=== PATIENT | female | born 1970 | race Caucasian/White ===

== ENCOUNTER 2017-02-17 12:08 | Emergency (ER) | payer OTHER ==
[~2017-02-17] VITALS: Ht 162.6 cm; Wt 63.5 kg
[~2017-02-17 12:08] MED LIST: BACTROBAN15 GM TOP; CLINDAMYCIN HC300 M1 PO
--- NOTE | 2017-02-17 13:15 | RADIOLOGY REPORT ---
EXAMINATION: XR RIBS, RIGHT CLINICAL INFORMATION: Status post being struck with softball. Right rib pain. COMPARISON: None TECHNIQUE: PA view of the chest and 3 dedicated views of the right ribs are acquired. FINDINGS: Lungs are clear. No consolidation, pneumothorax, or pleural effusion. The cardiomediastinal silhouette and pulmonary vasculature are normal. Osseous structures are unremarkable. Ribs are intact. No fractures are identified. IMPRESSION: Unremarkable examination.
--- NOTE | 2017-02-17 13:26 | ED GENERAL ADULT ---
History of Present Illness General Chief Complaint: Trunk Injury Stated Complaint: R SIDED RIB PAIN S/P HIT WITH SOFTBALL Source: patient Exam Limitations: no limitations Vital Signs & Intake/Output Vital Signs & Intake/Output Vital Signs Date Time Temp Pulse Resp B/P Pulse O2 O2 Flow FiO2 Ox Delivery Rate 02/17 1216 96.8 103 16 98 Room Air Allergies Coded Allergies: NO KNOWN ALLERGIES (UNKNOWN 02/17/17) Reconcile Medications Levothyroxine Sodium 88 MCG TABLET 1 TAB PO DAILY AC THYROID (Reported) Meloxicam (Mobic) 15 MG TABLET 1 TAB PO DAILY PRN PAIN Metoprolol Succinate 50 MG TAB.ER.24H 1 TAB PO DAILY HEART (Reported) Oxycodone HCl/Acetaminophen (Percocet 5-325 MG Tablet) 5 MG-325 MG TABLET 1 TAB PO BID PRN PAIN Triage Note: 46 S/P BEING STRUCK WITH SOFTBALL YESTERDAY. STATES PAIN IS ONLY WHERE SHE WAS STRUCK. DENIES NOTING BRUISE. XRAY ORDERED. Triage Nurses Notes Reviewed? 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 Patient denies any shoulder pain however does state that moving her shoulder makes her rib pain worse. Denies any shortness of breath hemoptysis cough. Patient hasn't taken medications for her symptoms. (CLEOPATRA MCNALLY) Past History Travel History Traveled to [place] past 21 day No Medical History Any Pertinent Medical History? 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 Psychosocial History What is your primary language Welsh Tobacco Use: Quit >30 days ago Family History Hx Contributory? No (CLEOPATRA MCNALLY) Review of Systems Review of Systems Constitutional: Reports: no symptoms. EENTM: Reports: no symptoms. Respiratory: Reports: see HPI. Denies: cough, short of breath, sputum production. Cardiovascular: Reports: see HPI. GI: Reports: no symptoms. Genitourinary: Reports: no symptoms. Musculoskeletal: Reports: no symptoms. Skin: Reports: no symptoms. Neurological/Psychological: Reports: no symptoms. Hematologic/Endocrine: Reports: no symptoms. Immunologic/Allergic: Reports: no symptoms. All Other Systems: Reviewed and Negative (CLEOPATRA MCNALLY) Physical Exam Physical Exam General Appearance: no apparent distress, alert, comfortable Comments: Well-developed well-nourished person in no acute distress HEENT: Normal EENT exam, Neck: Supple, no lymphadenopathy, normal range of motion without pain or tenderness Back: Nontender, no CVA tenderness. Cardiovascular: Regular rate and rhythms no murmurs rubs or gallops, normal JVP Respiratory: No respiratory distress.breath sounds clear to auscultation bilaterally Abdomen: Soft, nontender nondistended, no appreciable organomegaly. Normal bowel sounds. No ascites Extremity: No edema, no calf tenderness to palpation, normal and equal pulses. Neuro: Alert oriented x3, motor sensory normal, Skin: No appreciable rash on exposed skin, skin is warm and dry. Psych: Mood and affect is normal, memory and judgment is normal. Core Measures ACS in differential dx? No CVA/TIA Diagnosis: No Severe Sepsis Present: No Septic Shock Present: No Diagram Body: 1) Right upper axilla point tenderness noted, no signs of trauma no swelling no ecchymosis no step-off deformity (CLEOPATRA MCNALLY) Progress Differential Diagnoses I considered the following diagnoses in my evaluation of the patient: [Rib contusion, rib fracture, pneumothorax, hemothorax,] Plan of Care: Orders Procedure Date/time Status XRY-SHOULDER COMPLETE-RIGHT 02/17 1356 Active Current Medications Sig/Marv Start time Last Medication Dose Stop Time Status Admin Ibuprofen 600 MG ONCE ONE 02/17 1415 UNVr (Motrin) 02/17 1416 Patient looks well no apparent distress nontoxic-appearing clear lungs auscultation no respiratory distress. X-rays showed no osseous injury for concerns of rib fracture. (CLEOPATRA MCNALLY) Initial ED EKG: none Comments: PATIENT: MANJIT JOHN PRESENT AGE: 46 PATIENT ACCOUNT NO: [id number] : 70 LOCATION: [facility] ORDERING PHYSICIAN: SUSHANT HOPE MD SERVICE DATE: 02/17/17-121 EXAM TYPE: RAD - XRY-RIBS UNILATERAL-RIGHT EXAMINATION: XR RIBS, RIGHT CLINICAL INFORMATION: Status post being struck with softball. Right rib pain. COMPARISON: None TECHNIQUE: PA view of the chest and 3 dedicated views of the right ribs are acquired. FINDINGS: Lungs are clear. No consolidation, pneumothorax, or pleural effusion. The cardiomediastinal silhouette and pulmonary vasculature are normal. Osseous structures are unremarkable. Ribs are intact. No fractures are identified. IMPRESSION: Unremarkable examination. (CLEOPATRA MCNALLY) Departure Departure Disposition: HOME OR SELF CARE Condition: Stable Clinical Impression Primary Impression: Rib pain on right side Referrals: SLOAN HENRIQUEZ,NOEL (PCP/Family) Additional Instructions: As discussed begin icing the area directly 20 minutes every 2 hours. Begin the prescription of meloxicam for pain and inflammation in the prescription of Percocet for breakthrough pain relief. If no better in one week follow-up with primary care doctor. If symptoms worsen return to the emergency room. Prescriptions are waiting at [facility] Departure Forms: Customer Survey General Discharge Information Prescriptions: Current Visit Scripts Meloxicam (Mobic) 1 TAB PO DAILY PRN PAIN #15 TAB Oxycodone HCl/Acetaminophen (Percocet 5-325 MG Tablet) 1 TAB PO BID PRN PAIN #10 TAB (CLEOPATRA MCNALLY) PA/GRAPHIC MANAGER Co-Sign Statement Statement: ED Attending supervision documentation- [] I saw and evaluated the patient. I have also reviewed all the pertinent lab results and diagnostic results. I agree with the findings and the plan of care as documented in the PA's/GRAPHIC MANAGER's documentation. [X] I have reviewed the ED Record and agree with the PA's/GRAPHIC MANAGER's documentation. [] Additions or exceptions (if any) to the PAs/GRAPHIC MANAGER's note and plan are summarized below: [] (HERMINIA HENRIQUEZ,SUSHANT) Critical Care Note Critical Care Note Critical Care Time: non-applicable (CLEOPATRA MCNALLY)
[2017-02-17] MEDS ORDERED: METOPROLOL SUCC50 M2 PO (14:00)
[2017-02-17] MEDS ORDERED: LEVOTHYROXINE88 MCG PO (14:01)
[2017-02-17] MEDS ORDERED: PERCOCET 5-3251 EACH PO (14:15)
[2017-02-17] MEDS ORDERED: MOBIC15 M1 PO (14:15)
== END 2017-02-17 14:45 ==
LOC: ERH 12:08
DX: R07.81 Pleurodynia (principal)
CPT/HCPCS: 71100-RT